=== PATIENT | male | born 1935 | race Caucasian/White ===

== ENCOUNTER 2019-08-22 15:26 | Outpatient (CLI) | payer MEDICARE, SELFPAY ==
--- NOTE | ~2019-08-22 | XR_ITS ---
EXAMINATION: XR chest 2V EXAM DATE: 08/22/2019 16:11 INDICATION: Cough and wheezing. TECHNIQUE: Frontal and lateral projections of the chest obtained and reviewed. Comparison is made to prior examination from 04/09/2018. FINDINGS: The lungs are clear. There are no pleural effusions. The cardiomediastinal silhouette is within normal limits. There is no pneumothorax suspected. The bones and soft tissues are unremarkab le. IMPRESSION: No acute cardiopulmonary findings. Reviewed, dictated and finalized at location B. [facility] C[facility]ER COMPLAINT SERVICE
== END 2019-08-22 15:27 | disposition home or self-care (01) ==
LOC: CHSIMG 15:33
PROVIDERS: PCP Family Medicine; Visit Provider Family Medicine
DX: R05 Cough (principal)
CPT/HCPCS: 71046

== ENCOUNTER 2020-04-01 07:05 | Outpatient (CLI) | payer MEDICARE, SELFPAY ==
[2020-04-01 07:27] LABS: Basophils Absolute Auto 0.03 K/mm3 (0.00-0.10); Basophils Percent Auto 0.5 % (0.0-1.0); Eosinophils Absolute Auto 0.23 K/mm3 (0.02-0.50); Eosinophils Percent Auto 3.8 % (1.0-6.0); Hematocrit 42.8 % (37.0-46.0); Hemoglobin 14.3 g/dL (12.4-15.3); Immature Granulocyte Absolute 0.02 K/mm3 (0.00-0.00); Immature Granulocyte Percent A 0.3 % (0.0-0.0); Lymphocytes Absolute Auto 1.14 K/mm3 (1.10-4.50); Mean Corpuscular HGB Conc 33.4 g/dL (32.0-36.0); Mean Corpuscular Hemoglobin 31.6 pg (27.0-31.0); Mean Corpuscular Volume 94.7 fL (78.0-102.0); Mean Platelet Volume 10.4 fl (8.7-11.0); Monocytes Absolute Auto 0.73 K/mm3 (0.10-0.90); Monocytes Percent Auto 12.2 % (2.0-11.0); Neutrophils Absolute Auto 3.8 K/mm3 (1.7-7.2); Neutrophils Percent Auto 64.2 % (50.0-70.0); Platelet Count Result 220 K/mm3 (150-420); Red Blood Count 4.52 M/mm3 (4.70-6.10); Red Cell Distribution Width 13.6 % (11.6-14.4)
[2020-04-01 09:16] LABS: Alanine Aminotransferase 34 U/L (16-63); Albumin Level 3.8 g/dL (3.4-5.0); Alkaline Phosphatase 52 U/L (46-116); Anion Gap 9 mmol/L (8-16); Aspartate Amino Transferase 27 U/L (15-37); Bilirubin,Total 0.9 mg/dL (0.00-1.00); Blood Urea Nitrogen 25 mg/dL (7-18); Calcium 9.1 mg/dL (8.5-10.1); Carbon Dioxide 26 mmol/L (21-32); Chloride 107 mmol/L (98-108); Cholesterol 142 mg/dL (0-200); Creatine Kinase 59 U/L (39-308); Estimated Glomerular Filt Rate > 60; Glucose 94 mg/dL (70-99); HDL Direct 50 mg/dL (40-60); LDL Cholesterol Calculated 77 mg/dL (<130); Osmolality Calculated 298 mOsm/kg (285-295); Potassium 4.1 mmol/L (3.5-5.1); Prostate Specific Antigen 0.4 ng/mL (< OR = 4.0); Sodium 142 mmol/L (136-145); Total Protein 6.5 g/dL (6.4-8.2); Triglycerides 73 mg/dL (0-150)
== END 2020-04-01 07:06 | disposition home or self-care (01) ==
PROVIDERS: PCP Family Medicine; Visit Provider Hospitalist
DX: E78.2 Mixed hyperlipidemia (principal); I10 Essential (primary) hypertension; N40.0 Benign prostatic hyperplasia without lower urinary tract symptoms; Z12.5 Encounter for screening for malignant neoplasm of prostate
CPT/HCPCS: 36415; 80053; 80061; 82550; 84153; 85025; G0103

== ENCOUNTER 2020-10-12 07:12 | Outpatient (CLI) | payer MEDICARE, SELFPAY ==
[2020-10-12 10:03] LABS: Alanine Aminotransferase 8 U/L (16-63); Albumin Level 3.5 g/dL (3.4-5.0); Alkaline Phosphatase 57 U/L (46-116); Anion Gap 7 mmol/L (8-16); Aspartate Amino Transferase 20 U/L (15-37); Bilirubin,Total 0.4 mg/dL (0.00-1.00); Blood Urea Nitrogen 28 mg/dL (7-18); Calcium 8.8 mg/dL (8.5-10.1); Carbon Dioxide 27 mmol/L (21-32); Chloride 108 mmol/L (98-108); Estimated Glomerular Filt Rate > 60; Glucose 104 mg/dL (70-99); Osmolality Calculated 299 mOsm/kg (285-295); Potassium 4.6 mmol/L (3.5-5.1); Sodium 142 mmol/L (136-145); Thyroid Stimulating Hormone 1.22 uIU/mL (0.36-3.74); Total Protein 6.4 g/dL (6.4-8.2)
== END 2020-10-12 07:13 | disposition home or self-care (01) ==
LOC: CHSLAB 07:13
PROVIDERS: PCP Family Medicine; Visit Provider Family Medicine
DX: E78.2 Mixed hyperlipidemia (principal)
CPT/HCPCS: 36415; 80053; 84443

== ENCOUNTER 2021-04-12 07:03 | Outpatient (CLI) | payer MEDICARE, SELFPAY ==
[2021-04-12 07:17] LABS: Basophils Absolute Auto 0.04 K/mm3 (0.00-0.10); Basophils Percent Auto 0.6 % (0.0-1.0); Eosinophils Absolute Auto 0.17 K/mm3 (0.02-0.50); Eosinophils Percent Auto 2.7 % (1.0-6.0); Hematocrit 44.8 % (37.0-46.0); Hemoglobin 14.7 g/dL (12.4-15.3); Immature Granulocyte Absolute 0.01 K/mm3 (0.00-0.00); Immature Granulocyte Percent A 0.2 % (0.0-0.0); Lymphocytes Percent Auto 20.8 % (18.0-42.0); Mean Corpuscular HGB Conc 32.8 g/dL (32.0-36.0); Mean Corpuscular Hemoglobin 31.3 pg (27.0-31.0); Mean Corpuscular Volume 95.5 fL (78.0-102.0); Mean Platelet Volume 10.4 fl (8.7-11.0); Monocytes Absolute Auto 0.83 K/mm3 (0.10-0.90); Monocytes Percent Auto 13.3 % (2.0-11.0); Neutrophils Absolute Auto 3.9 K/mm3 (1.7-7.2); Neutrophils Percent Auto 62.4 % (50.0-70.0); Platelet Count Result 235 K/mm3 (150-420); Red Blood Count 4.69 M/mm3 (4.70-6.10); Red Cell Distribution Width 13.5 % (11.6-14.4); White Blood Count 6.3 K/mm3 (4.8-10.8)
[2021-04-12 07:40] LABS: MALB Creatinine Ratio 16.5 mg/g (0-30); Microalbumin Urine Random < 13.0 mg/L
[2021-04-12 08:19] LABS: Alanine Aminotransferase 29 U/L (16-63); Albumin Level 3.7 g/dL (3.4-5.0); Alkaline Phosphatase 48 U/L (46-116); Anion Gap 9 mmol/L (8-16); Aspartate Amino Transferase 19 U/L (15-37); Bilirubin,Total 0.6 mg/dL (0.00-1.00); Blood Urea Nitrogen 18 mg/dL (7-18); Carbon Dioxide 28 mmol/L (21-32); Chloride 108 mmol/L (98-108); Cholesterol 143 mg/dL (0-200); Estimated Glomerular Filt Rate > 60; Glucose 108 mg/dL (70-99); HDL Direct 47 mg/dL (40-60); LDL Cholesterol Calculated 83 mg/dL (<130); Osmolality Calculated 302 mOsm/kg (285-295); Potassium 4.2 mmol/L (3.5-5.1); Prostate Specific Antigen 0.4 ng/mL (< OR = 4.0); Sodium 145 mmol/L (136-145); Total Protein 6.5 g/dL (6.4-8.2); Triglycerides 63 mg/dL (0-150)
== END 2021-04-12 07:04 | disposition home or self-care (01) ==
LOC: CHSLAB 07:05
PROVIDERS: PCP Family Medicine; Visit Provider Family Medicine
DX: E78.2 Mixed hyperlipidemia (principal); N40.0 Benign prostatic hyperplasia without lower urinary tract symptoms; I10 Essential (primary) hypertension
CPT/HCPCS: 36415; 80053; 80061; 82043; 84153; 85025

== ENCOUNTER 2021-10-13 07:12 | Outpatient (CLI) | payer MEDICARE, SELFPAY ==
[2021-10-13 08:16] LABS: Alanine Aminotransferase 30 U/L (16-63); Albumin Level 3.9 g/dL (3.4-5.0); Alkaline Phosphatase 49 U/L (46-116); Anion Gap 7 mmol/L (8-16); Aspartate Amino Transferase 27 U/L (15-37); Bilirubin Direct 0.2 mg/dL (0-0.2); Bilirubin,Total 0.7 mg/dL (0.00-1.00); Blood Urea Nitrogen 21 mg/dL (7-18); Calcium 9.2 mg/dL (8.5-10.1); Carbon Dioxide 28 mmol/L (21-32); Chloride 108 mmol/L (98-108); Estimated Glomerular Filt Rate > 60; Glucose 103 mg/dL (70-99); Osmolality Calculated 299 mOsm/kg (285-295); Potassium 4.3 mmol/L (3.5-5.1); Sodium 143 mmol/L (136-145); Total Protein 6.9 g/dL (6.4-8.2)
== END 2021-10-13 07:13 | disposition home or self-care (01) ==
LOC: CHSLAB 07:15
PROVIDERS: PCP Family Medicine; Visit Provider Family Medicine
DX: R73.9 Hyperglycemia, unspecified (principal); E78.2 Mixed hyperlipidemia
CPT/HCPCS: 36415; 80048; 80076

== ENCOUNTER 2022-04-15 07:18 | Outpatient (CLI) | payer MEDICARE, SELFPAY ==
[2022-04-15 08:35] LABS: Alanine Aminotransferase 34 U/L (16-63); Albumin Level 3.7 g/dL (3.4-5.0); Alkaline Phosphatase 40 U/L (46-116); Anion Gap 8 mmol/L (8-16); Aspartate Amino Transferase 26 U/L (15-37); Bilirubin,Total 0.6 mg/dL (0.00-1.00); Blood Urea Nitrogen 19 mg/dL (7-18); Calcium 9.1 mg/dL (8.5-10.1); Carbon Dioxide 27 mmol/L (21-32); Chloride 108 mmol/L (98-108); Cholesterol 127 mg/dL (0-200); Estimated Glomerular Filt Rate > 60; Glucose 106 mg/dL (70-99); HDL Direct 51 mg/dL (40-60); LDL Cholesterol Calculated 66 mg/dL (<130); Osmolality Calculated 298 mOsm/kg (285-295); Potassium 4.2 mmol/L (3.5-5.1); Sodium 143 mmol/L (136-145); Thyroid Stimulating Hormone 1.05 uIU/mL (0.36-3.74); Total Protein 6.6 g/dL (6.4-8.2); Triglycerides 52 mg/dL (0-150)
[2022-04-19 18:37] LABS: Vitamin D 25 Hydroxy 48 ng/mL (30-100)
[2022-04-19 21:56] LABS: Collagen Type I C-Telopeptide 156 pg/mL (***); Osteocalcin 11 ng/mL (9-38)
== END 2022-04-15 07:19 | disposition home or self-care (01) ==
LOC: CHSLAB 07:21
PROVIDERS: PCP Family Medicine
DX: M81.0 Age-related osteoporosis without current pathological fracture (principal); E78.2 Mixed hyperlipidemia
CPT/HCPCS: 36415; 80053; 80061; 82306; 82523; 83937; 84443

== ENCOUNTER 2022-05-25 18:15 | Outpatient (CLI) | payer MEDICARE, SELFPAY ==
[2022-05-25 18:57] LABS: Strep Group A RT-PCR Negative (Negative)
[2022-05-25 19:08] LABS: Influenza A QL RT-PCR Negative (Negative); Influenza B QL RT-PCR Negative (Negative); SARS-CoV-2 RNA PCR Negative (Negative)
== END 2022-05-25 18:16 | disposition home or self-care (01) ==
LOC: CHSLAB 18:19
PROVIDERS: PCP Family Medicine; Visit Provider Family Medicine
DX: J06.9 Acute upper respiratory infection, unspecified (principal); Z20.822 Contact with and (suspected) exposure to COVID-19
CPT/HCPCS: 87636; 87651

== ENCOUNTER 2023-01-31 07:30 | Outpatient (CLI) | payer MEDICARE, SELFPAY ==
[2023-01-31 07:50] LABS: Basophils Absolute Auto 0.02 K/mm3 (0.00-0.10); Basophils Percent Auto 0.3 % (0.0-1.0); Eosinophils Absolute Auto 0.17 K/mm3 (0.02-0.50); Eosinophils Percent Auto 2.8 % (1.0-6.0); Hematocrit 41.6 % (37.0-46.0); Hemoglobin 13.8 g/dL (12.4-15.3); Immature Granulocyte Absolute 0.02 K/mm3 (0.00-0.00); Immature Granulocyte Percent A 0.3 % (0.0-0.0); Lymphocytes Absolute Auto 1.24 K/mm3 (1.10-4.50); Lymphocytes Percent Auto 20.7 % (18.0-42.0); Mean Corpuscular HGB Conc 33.2 g/dL (32.0-36.0); Mean Corpuscular Hemoglobin 31.9 pg (27.0-31.0); Mean Corpuscular Volume 96.1 fL (78.0-102.0); Mean Platelet Volume 10.3 fl (8.7-11.0); Monocytes Absolute Auto 0.76 K/mm3 (0.10-0.90); Monocytes Percent Auto 12.7 % (2.0-11.0); Neutrophils Absolute Auto 3.8 K/mm3 (1.7-7.2); Neutrophils Percent Auto 63.2 % (50.0-70.0); Platelet Count Result 212 K/mm3 (150-420); Red Blood Count 4.33 M/mm3 (4.70-6.10); Red Cell Distribution Width 13.7 % (11.6-14.4)
[2023-01-31 09:07] LABS: Alanine Aminotransferase 31 U/L (16-63); Albumin Level 3.7 g/dL (3.4-5.0); Alkaline Phosphatase 42 U/L (46-116); Anion Gap 7 mmol/L (8-16); Aspartate Amino Transferase 22 U/L (15-37); Bilirubin,Total 0.7 mg/dL (0.00-1.00); Blood Urea Nitrogen 24 mg/dL (7-18); Calcium 9.2 mg/dL (8.5-10.1); Carbon Dioxide 29 mmol/L (21-32); Chloride 109 mmol/L (98-108); Cholesterol 117 mg/dL (0-200); Estimated Glomerular Filt Rate > 60; Glucose 104 mg/dL (70-99); HDL Direct 49 mg/dL (40-60); LDL Cholesterol Calculated 57 mg/dL (<130); Osmolality Calculated 304 mOsm/kg (285-295); Potassium 4.1 mmol/L (3.5-5.1); Sodium 145 mmol/L (136-145); Thyroid Stimulating Hormone 0.99 uIU/mL (0.36-3.74); Total Protein 6.3 g/dL (6.4-8.2); Triglycerides 53 mg/dL (0-150)
== END 2023-01-31 07:31 | disposition home or self-care (01) ==
LOC: CHSLAB 07:32
PROVIDERS: PCP Family Medicine; Visit Provider Family Medicine
DX: I10 Essential (primary) hypertension (principal)
CPT/HCPCS: 36415; 80053; 80061; 84443; 85025

== ENCOUNTER 2023-08-14 08:21 | Outpatient (CLI) | payer MEDICARE, SELFPAY ==
[2023-08-14 08:42] LABS: Basophils Absolute Auto 0.04 K/mm3 (0.00-0.10); Basophils Percent Auto 0.7 % (0.0-1.0); Eosinophils Percent Auto 3.4 % (1.0-6.0); Hematocrit 40.5 % (37.0-46.0); Hemoglobin 13.1 g/dL (12.4-15.3); Immature Granulocyte Absolute 0.03 K/mm3 (0.00-0.00); Immature Granulocyte Percent A 0.5 % (0.0-0.0); Lymphocytes Absolute Auto 1.17 K/mm3 (1.10-4.50); Lymphocytes Percent Auto 19.9 % (18.0-42.0); Mean Corpuscular HGB Conc 32.3 g/dL (32.0-36.0); Mean Corpuscular Hemoglobin 31.2 pg (27.0-31.0); Mean Corpuscular Volume 96.4 fL (78.0-102.0); Mean Platelet Volume 10.1 fl (8.7-11.0); Monocytes Absolute Auto 0.74 K/mm3 (0.10-0.90); Monocytes Percent Auto 12.6 % (2.0-11.0); Neutrophils Absolute Auto 3.7 K/mm3 (1.7-7.2); Neutrophils Percent Auto 62.9 % (50.0-70.0); Platelet Count Result 222 K/mm3 (150-420); Red Cell Distribution Width 13.9 % (11.6-14.4); White Blood Count 5.9 K/mm3 (4.8-10.8)
[2023-08-14 08:50] LABS: Creatinine Urine 104.67 mg/dL (40-278); MALB Creatinine Ratio 12.4 mg/g (0-30); Microalbumin Urine Random < 13.0 mg/L
[2023-08-14 09:07] LABS: Anion Gap 6 mmol/L (8-16); Blood Urea Nitrogen 26 mg/dL (7-18); Calcium 8.6 mg/dL (8.5-10.1); Carbon Dioxide 30 mmol/L (21-32); Chloride 108 mmol/L (98-108); Estimated Glomerular Filt Rate > 60; Glucose 108 mg/dL (70-99); Osmolality Calculated 303 mOsm/kg (285-295); Potassium 4.3 mmol/L (3.5-5.1); Sodium 144 mmol/L (136-145)
== END 2023-08-14 08:22 | disposition home or self-care (01) ==
LOC: CHSLAB 08:23
PROVIDERS: PCP Family Medicine; Visit Provider Family Medicine
DX: I10 Essential (primary) hypertension (principal)
CPT/HCPCS: 36415; 80048; 82043; 85025

== ENCOUNTER 2024-02-09 07:27 | Outpatient (CLI) | payer MEDICARE, SELFPAY ==
[2024-02-09 07:51] LABS: Basophils Absolute Auto 0.03 K/mm3 (0.00-0.10); Basophils Percent Auto 0.4 % (0.0-1.0); Eosinophils Absolute Auto 0.18 K/mm3 (0.02-0.50); Eosinophils Percent Auto 2.6 % (1.0-6.0); Hematocrit 40.5 % (37.0-46.0); Hemoglobin 13.6 g/dL (12.4-15.3); Immature Granulocyte Absolute 0.03 K/mm3 (0.00-0.00); Immature Granulocyte Percent A 0.4 % (0.0-0.0); Lymphocytes Absolute Auto 1.25 K/mm3 (1.10-4.50); Lymphocytes Percent Auto 18.4 % (18.0-42.0); Mean Corpuscular HGB Conc 33.6 g/dL (32-36); Mean Corpuscular Hemoglobin 31.9 pg (27.0-31.0); Mean Corpuscular Volume 95.1 fL (78.0-102.0); Mean Platelet Volume 10.1 fl (8.7-11.0); Monocytes Absolute Auto 0.81 K/mm3 (0.10-0.90); Monocytes Percent Auto 11.9 % (2.0-11.0); Neutrophils Absolute Auto 4.51 K/mm3 (1.70-7.20); Neutrophils Percent Auto 66.3 % (50.0-70.0); Platelet Count Result 234 K/mm3 (150-420); Red Blood Count 4.26 M/mm3 (4.70-6.10); Red Cell Distribution Width 13.8 % (11.6-14.4); White Blood Count 6.8 K/mm3 (4.8-10.8)
[2024-02-09 08:02] LABS: Creatinine Urine 63.62 mg/dL (40-278); MALB Creatinine Ratio 20.4 mg/g (0-30); Microalbumin Urine Random < 13.0 mg/L
[2024-02-09 10:19] LABS: Alanine Aminotransferase 44 U/L (16-63); Albumin Level 3.7 g/dL (3.4-5.0); Alkaline Phosphatase 44 U/L (46-116); Anion Gap 6 mmol/L (4-12); Aspartate Amino Transferase 30 U/L (15-37); Bilirubin,Total 0.4 mg/dL (0.00-1.00); Blood Urea Nitrogen 24 mg/dL (7-18); Calcium 9.1 mg/dL (8.5-10.1); Carbon Dioxide 29 mmol/L (21-32); Chloride 105 mmol/L (98-108); Cholesterol 125 mg/dL (0-200); Estimated Glomerular Filt Rate > 60; Glucose 110 mg/dL (70-99); HDL Direct 47 mg/dL (40-60); LDL Cholesterol Calculated 67 mg/dL (<130); Osmolality Calculated 295 mOsm/kg (285-295); Potassium 4.3 mmol/L (3.5-5.1); Sodium 140 mmol/L (136-145); Total Protein 6.6 g/dL (6.4-8.2); Triglycerides 55 mg/dL (0-150)
== END 2024-02-09 07:28 | disposition home or self-care (01) ==
LOC: CHSLAB 07:30
PROVIDERS: PCP Family Medicine; Visit Provider Family Medicine
DX: I10 Essential (primary) hypertension (principal); E78.2 Mixed hyperlipidemia
CPT/HCPCS: 36415; 80053; 80061; 82043; 84443; 85025

== ENCOUNTER 2024-03-19 07:25 | Outpatient (CLI) | payer MEDICARE, SELFPAY ==
[2024-03-19 08:06] LABS: Anion Gap 7 mmol/L (4-12); Blood Urea Nitrogen 19 mg/dL (7-18); Calcium 8.9 mg/dL (8.5-10.1); Carbon Dioxide 30 mmol/L (21-32); Chloride 107 mmol/L (98-108); Estimated Glomerular Filt Rate > 60; Glucose 108 mg/dL (70-99); Hemoglobin A1C 5.8 % (<5.7); Osmolality Calculated 301 mOsm/kg (285-295); Sodium 144 mmol/L (136-145)
[2024-03-20 16:19] LABS: Vitamin D 25 Hydroxy 47 ng/mL (30-100)
[2024-03-21 21:48] LABS: Osteocalcin 12 ng/mL (9-38)
[2024-03-23 16:53] LABS: Collagen Type I C-Telopeptide 182 pg/mL
== END 2024-03-19 07:26 | disposition home or self-care (01) ==
PROVIDERS: PCP Family Medicine
DX: M81.0 Age-related osteoporosis without current pathological fracture (principal); R73.03 Prediabetes
CPT/HCPCS: 36415; 80048; 82306; 82523; 83036; 83937

== ENCOUNTER 2024-07-30 08:42 | Outpatient (CLI) | payer MEDICARE, SELFPAY ==
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
--- OUTSIDE RECORDS SUMMARY | 2024-07-30 08:59 | XMS_ITS | Encounter Summary ---
Author Organization [facility] Address [address] [place] [address]. [place] [address] [place] [address] Care Team Providers Care Computer Support Analyst Name Role Phone Santos Reynoso MD Unavailable [phone] Jay Watson MD Primary Care Provider [phone] Encounter Details Date Type Department Care Team (Late st Contact Info) Description 10/21/2020 Abstract [facility] [address] Keiko Cassidy MA Social History Tobacco Use Types Packs/Day Years Used Date Smoking Tobacco: Never Smokeless Tobacco: Never Alcohol Use Standard Drinks/Week Comments No 0 (1 standard drink = 0.6 oz pur e alcohol) PHQ-2 Answer Date Recorded PHQ-2 Score - If the patient scores above 3, please move on to questions 3-9 0 03/17/2020 Sex and Gender Information Value Date Recorded Sex Assigned at Not on file Legal Sex Male 11:25 AM CDT Gender Identity Not on file Sexual Orientation Not on file Occupation Industry Job Start Date Job End Date Not on file Not on file Not on file Not on file documented as of this encounter Plan of Treatment Upcoming Encounters Date Type Department Care Team (Late st Contact Info) Description 11/11/2024 11:45 AM CDT [facility] [address] [place] [address] Santos Reynoso MD Three [facility]. [address] [place] [address] documented as of this encounter Procedures Procedure Name Priority Date/Time Associated Diagnosis Comments COMPREHENSIVE METABOLIC PANEL Routine 10/12/2020 THYROID STIM HORMONE TSH Routine 10/12/2020 documented in this encounter Results * THYROID STIM HORMONE, TSH (10/12/2020) TSH 1.22 10/12/2020 [facility] Final Result * COMPREHENSIVE METABOLIC PANEL (10/12/2020) SODIUM S/P/B 142 POTASSIUM S/P/B 4.6 CO2 27 CHLORIDE S/P/B 108 GLUCOSE 104 mg/dL CALCIUM S/P/B 8.8 BUN 28 CREATININE S/P/B 1.07 0.7 - 1.3 EGFR NON-AFR. AMER. >60 <=90 ALKALINE PHOSPHATASE S/P/B 57 ALT 8 AST 20 BILIRUBIN TOTAL S/P/B 0.4 ALBUMIN S/P/B 3.5 3.5 - 5.0 TOTAL PROTEIN S/P/B 6.4 10/12/2020 us Doc [facility] Final Result documented in this encounter Visit Diagnoses Not on filedocumented in this encounter Care Teams Computer Support Analyst Relationship Specialty Start Date End Date Jay Watson MD [facility] [place] [address] PCP - General FAMILY PRACTICE 03/26/16 Santos Reynoso MD Three [facility]. [facility] [address] [place] [address] Roaxnna Personal Banking Representative CARDIOVASCULAR DISEASE 11/25/15 documented as of this encounter
--- OUTSIDE RECORDS SUMMARY | 2024-07-30 09:00 | XMS_ITS | Encounter Summary ---
Author Organization [facility] Address [address] [place] [address]. [place] [address] [place] [address] Care Team Providers Care English As A Second Language Teacher Name Role Phone Santos Reynoso MD Unavailable [phone] Jay Watson MD Primary Care Provider [phone] Tootie Mullen Unavailable [phone] Encounter Details Date Type Department Care Team (Late st Contact Info) Description 04/12/2016 Abstract [facility] AT [address] [address] Keiko Cassidy MA Social History Tobacco Use [...] on file documented as of this encounter Progress Notes * REYNOLD Vasquez - 11/09/2016 1:13 PM CDT PG pt send letter continue current meds documented in this encounter Plan of Treatment Upcoming Encounters Date Type Department Care Team (Late st Contact Info) Description 11/11/2024 11:45 AM CDT Office Visit [facility] [address] [place] [address] [facility] [address] [place] [address] documented as of this encounter Procedures Procedure Name Priority Date/Time Associated Diagnosis Comments CBC (OUTSIDE LAB) Routine 11/08/2016 PROSTATE SPECIFIC ANTIGEN,TOTAL Routine 11/08/2016 BASIC METABOLIC PANEL Routine 11/08/2016 LIPID PANEL Routine 11/04/2016 COMPREHENSIVE METABOLIC PANEL Routine 04/26/2016 LIPID PANEL Routine 04/26/2016 CK (CPK) Routine 04/26/2016 CBC (OUTSIDE LAB) Routine 03/06/2016 BASIC METABOLIC PANEL Routine 03/06/2016 LIPOPROTEIN, LDL CHOL, DIRECT Routine 03/06/2016 documented in this encounter Results * PROSTATE SPECIFIC ANTIGEN,TOTAL (11/08/2016) PSA 0.4 11/08/2016 us [facility] Final Result * CBC (OUTSIDE LAB) (11/08/2016) WBC 5.9 HGB 13.6 HCT 40.7 PLT 218 11/08/2016 us Doc [facility] Abstract LAB-OUTSIDE/ABSTRACTED Final Result * BASIC METABOLIC PANEL (11/08/2016) SODIUM S/P/B 140 POTASSIUM S/P/B 4.3 CO2 25 CHLORIDE S/P/B 107 GLUCOSE 103 mg/dL CALCIUM S/P/B 9.8 BUN 28 CREATININE S/P/B 0.88 0.7 - 1.3 EGFR AFR. AMER. 95 EGFR NON-AFR. AMER. 82 <=90 11/08/2016 us Doc [facility] Final Result * LIPID PANEL (11/04/2016) CHOLESTEROL 192 HDL 50 TRIGLYCERIDES 62 LDL (CALCULATED) 130 11/04/2016 us Doc [facility] Final Result * CK (CPK) (04/26/2016) CPK 59 04/26/2016 us Doc [facility] Final Result * LIPID PANEL (04/26/2016) CHOLESTEROL 192 HDL 50 TRIGLYCERIDES 52 LDL (CALCULATED) 130 04/26/2016 us Doc [facility] Final Result * COMPREHENSIVE METABOLIC PANEL (04/26/2016) SODIUM S/P/B 141 POTASSIUM S/P/B 4.4 CO2 27 CHLORIDE S/P/B 107 GLUCOSE 79 CALCIUM S/P/B 9.7 BUN 21 CREATININE S/P/B 0.88 0.7 - 1.3 EGFR AFR. AMER. 95 EGFR NON-AFR. AMER. 82 ALKALINE PHOSPHATASE S/P/B 46 ALT 17 AST 20 BILIRUBIN TOTAL S/P/B 0.5 ALBUMIN S/P/B 3.9 3.5 - 5.0 TOTAL PROTEIN S/P/B 6.1 04/26/2016 us Doc [facility] Edited Resul t - Final * CBC (OUTSIDE LAB) (03/06/2016) WBC 8.7 HGB 14.5 HCT 43.6 PLT 252 03/06/2016 us Doc [facility] Abstract LAB-OUTSIDE/ABSTRACTED Final Result * LIPOPROTEIN, LDL CHOL, DIRECT (03/06/2016) Pathologist [facility] DIRECT LDL 146 03/06/2016 us Doc [facility]AT[facility] Final Result * BASIC METABOLIC PANEL (03/06/2016) Pathologist [facility] SODIUM S/P/B 143 POTASSIUM S/P/B 3.7 CO2 25 CHLORIDE S/P/B 111 GLUCOSE 122 CALCIUM S/P/B 9.6 BUN 21 CREATININE S/P/B 0.89 EGFR NON-AFR. AMER. >60 03/06/2016 us Doc [facility] Edited Resul t - Final documented in this encounter Visit Diagnoses Not on filedocumented in this encounter Care Teams English As A Second Language Teacher Relationship Specialty Start Date End Date Jay Watson MD [address] [place] [address] PCP - General FAMILY PRACTICE 03/26/16 Tootie Mullen APNP [address] [facility] [address] [place] [address] PCP - Med Group - MSSP Attributed Provider 06/26/15 03/13/19 Santos Reynoso MD Three [facility]. [address] [place] [address] Roxanna Independent Jeweler CARDIOVASCULAR DISEASE 11/25/15 documented as of this encounter
--- OUTSIDE RECORDS SUMMARY | 2024-07-30 09:00 | XMS_ITS | Encounter Summary ---
Author Organization [facility] Address [address] [place] [address]. [place], [place] [address] [place] [address] Care Team Providers Care Gallery Or Museum Guide Name Role Phone Santos Reynoso MD Unavailable [phone] Jay Watson MD Primary Care Provider [phone] Reason for Visit * Reason Onset Date Comments Advise 03/08/2022 Encounter Details Date Type Department Care Team (Late st Contact Info) Description 03/08/2022 Telephone [facility] [address] [place] [address] Jay Watson MD [address] [place] [address] Advise Social History Tobacco Use Types Packs/Day Years Used Date Smoking Tobacco: Never Smokeless Tobacco: Never Alcohol Use Standard Drinks/Week Comments No 0 (1 standard drink = 0.6 oz pur e alcohol) PHQ-2 Answer Date Recorded PHQ-2 Score - If the patient scores above 3, please move on to questions 3-9 0 03/17/2021 Sex and Gender Information Value Date Recorded Sex Assigned at Not on file Legal Sex Male 11:25 AM CDT Gender Identity Not on file Sexual Orientation Not on file Occupation Industry Job Start Date Job End Date Not on file Not on file Not on file Not on file COVID-19 Exposure Response Date Recorded In the last 10 days, have yo u been in contact with someone who was confirmed or suspected to have Coronavirus/COVID-19? No / Unsure 03/04/2022 7:21 AM CDT documented as of this encounter Functional Status * RETIRED Are you deaf or do you have serious difficulty hearing Answer Date of Assessment Author Status No 02/21/2022 8:00 AM CDT Activ e * RETIRED Are you blind or do you have serious difficulty seeing, even when wearing glasses? Answer Date of Assessment Author Status No 02/21/2022 8:00 AM CDT Activ e * Do you have serious difficulty walking or climbing stairs? Answer Date of Assessment Author Status No 02/21/2022 8:00 AM CDT Maria Elena Esqueda RN Active * Do you have difficulty dressing or bathing? Answer Date of Assessment Author Status Yes 02/21/2022 8:00 AM CDT Maria Elena Esqueda RN Active * Because of a physical, mental, or emotional condition, do you have difficulty doing errands alone such as visiting a doctor's office or shopping? Answer Date of Assessment Author Status No 02/21/2022 8:00 AM CDT Maria Elena Esqueda RN Active documented as of this encounter Mental Status * Because of a physical, mental, or emotional condition, do you have serious difficulty concentrating, remembering, or making decisions? Answer Entry Date Author Status No 02/21/2022 8:00 AM CDT Maria Elena Esqueda RN Active documented in this encounter Progress Notes * Echo Boucher MA - 03/08/2022 3:[address] Mcwilliams will be following Home Health care * Jessica Foster - 03/08/2022 8:23 AM CDT [facility] has received the referral on Audie from your office. We will accept and get him onour schedule. Will Dr Zarate be following for his home care or should we defer to the PCP? Thank you Jessica JuneHotel Operations Manager documented in this encounter Plan of Treatment Upcoming Encounters Date Type Department Care Team (Late st Contact Info) Description 11/11/2024 11:45 AM CDT [facility] [address] [place] [address] Santos Reynoso MD [facility]. [address] [place] [address] documented as of this encounter Visit Diagnoses Not on filedocumented in this encounter Additional Health Concerns Assessment Noted Time PHQ-9 Depression Total Score: 0 03/17/20 21 10:02 AM CDT documented as of this encounter Care Teams Gallery Or Museum Guide Relationship Specialty Start Date End Date Jay Watson MD [address] [place] [address] PCP - General FAMILY PRACTICE 03/26/16 Santos Reynoso MD [facility]. [address] [place] [address] Roxanna General Assembler Installer CARDIOVASCULAR DISEASE 11/25/15 documented as of this encounter
--- OUTSIDE RECORDS SUMMARY | 2024-07-30 09:00 | XMS_ITS | Encounter Summary ---
Author Organization [facility] Address [address] [place] [address]. [place] [address] [place] [address] Care Team Providers Care Project Economist Name Role Phone Santos Reynoso MD Unavailable [phone] Jay Watson MD Primary Care Provider [phone] Tootie Mullen Unavailable [phone] Encounter Details Date Type Department Care Team (Late st Contact Info) Description 11/02/2017 Abstract [facility] at [address] [address] Keiko Cassidy MA Social History [...] encounter Progress Notes * REYNOLD Vasquez - 11/02/2017 3:33 PM CDT PG pt send letter continue current meds documented in this encounter Plan of Treatment Upcoming Encounters Date Type Department Care Team (Late st Contact Info) Description 11/11/2024 11:45 AM CDT Office Visit [facility] [address] [place] [phone] Santos Reynoso MD [address] [place] [address] documented as of this encounter Procedures Procedure Name Priority Date/Time Associated Diagnosis Comments CBC (OUTSIDE LAB) Routine 04/01/2020 PROSTATE SPECIFIC ANTIGEN,TOTAL Routine 04/01/2020 COMPREHENSIVE METABOLIC PANEL Routine 04/01/2020 LIPID PANEL Routine 04/01/2020 CK (CPK) Routine 04/01/2020 BASIC METABOLIC PANEL Routine 10/16/2017 LIPID PANEL Routine 10/09/2017 HEPATIC FUNCTION PANEL Routine 10/09/2017 CK (CPK) Routine 10/09/2017 documented in this encounter Results * PROSTATE SPECIFIC ANTIGEN,TOTAL (04/01/2020) PSA 0.4 04/01/2020 [facility] Final Result * LIPID PANEL (04/01/2020) CHOLESTEROL 142 HDL 50 TRIGLYCERIDES 73 LDL (CALCULATED) 77 04/01/2020 [facility] Final Result * CK (CPK) (04/01/2020) CPK 59 39 - 308 04/01/2020 [facility]AT[facility] Final Result * COMPREHENSIVE METABOLIC PANEL (04/01/2020) SODIUM S/P/B 142 POTASSIUM S/P/B 4.1 CO2 26 CHLORIDE S/P/B 107 GLUCOSE 94 mg/dL CALCIUM S/P/B 9.1 BUN 25 CREATININE S/P/B 0.92 0.7 - 1.3 EGFR NON-AFR. AMER. >60 <=90 ALKALINE PHOSPHATASE S/P/B 52 ALT 34 AST 27 BILIRUBIN TOTAL S/P/B 0.9 ALBUMIN S/P/B 3.8 3.5 - 5.0 TOTAL PROTEIN S/P/B 6.5 04/01/2020 [facility]ORAT[facility] Final Result * CBC (OUTSIDE LAB) (04/01/2020) WBC 6.0 HGB 14.3 HCT 42.8 PLT 220 04/01/2020 [facility] Abstract LAB-OUTSIDE/ABSTRACTED Final Result * BASIC METABOLIC PANEL (10/16/2017) SODIUM S/P/B 143 POTASSIUM S/P/B 4.2 CO2 27 CHLORIDE S/P/B 108 GLUCOSE 103 mg/dL CALCIUM S/P/B 9.2 BUN 24 CREATININE S/P/B 0.85 0.7 - 1.3 EGFR AFR. AMER. 95 EGFR NON-AFR. AMER. 82 <=90 10/16/2017 [facility]AT[facility] Final Result * HEPATIC FUNCTION PANEL (10/09/2017) ALBUMIN S/P/B 3.8 3.5 - 5.0 ALKALINE PHOSPHATASE S/P/B 48 ALT 35 AST 26 BILIRUBIN TOTAL S/P/B 0.41 TOTAL PROTEIN S/P/B 6.5 10/09/2017 [facility] LAB[facility]AT[facility] Final Result * LIPID PANEL (10/09/2017) CHOLESTEROL 142 HDL 51 TRIGLYCERIDES 48 LDL (CALCULATED) 81 10/09/2017 [facility] LAB[facility]AT[facility] Edited Resul t - Final * CK (CPK) (10/09/2017) CPK 61 10/09/2017 [facility] Final Result documented in this encounter Visit Diagnoses Not on filedocumented in this encounter Care Teams Project Economist Relationship Specialty Start Date End Date Jay Watson MD [address] [place] [address] PCP - General FAMILY PRACTICE 03/26/16 Tootie Mullen APNP [address] [phone] PCP - Med Group - MSSP Attributed Provider 06/26/15 03/13/19 Santos Reynoso MD [facility] [address] [place] [address] Anderson Marketing Trainee CARDIOVASCULAR DISEASE 11/25/15 documented as of this encounter
--- OUTSIDE RECORDS SUMMARY | 2024-07-30 09:00 | XMS_ITS | Clinical Summary ---
Author Organization [facility] Address [address] [place] [address]. [place] [address] [place] [address] Care Team Providers Care Pulmonary Specialist Name Role Phone Santos Reynoso MD Unavailable [phone] Jay Watson MD Primary Care Provider [phone] Allergies Active Allergy Reactions Criticality Noted Date Comments Sulfa Antibiotics Rash Low 04/05/2016 Medications Multiple Vitamins-Mineral s (MULTIVITAMIN ADULT) Tab Take 1 tablet by mouth daily. 6 Active CALCIUM OR Take 500 mg by mouth daily. Active acetaminophen 500 MG tablet Take 1 tablet (500 mg total) by mouth 2 (two) times a day. Active alendronate 70 MG tablet Take 1 tablet (70 mg total) by mouth once a week. Sundays 2 Active fish oil (OMEGA-3 FATTY ACID) 1000 MG Cap capsule Take 1 capsule (1,000 mg total) by mouth daily. Active losartan (COZAAR) 50 MG tablet Take 1 tablet (50 mg total) by mouth daily. 2 Active Blood Pressure Monitor KitIndications:H ypertension Take blood pressure daily and report findings to office nurse. DX: HTN 1 kit 2 Active clopidogrel (PLAVIX) 75 MG tabletIndication s:Cerebrovascula r accident (CVA) due to embolism of carotid artery, unspecified blood vessel laterality (CMS/HCC HHS/HCC) TAKE 1 TABLET BY MOUTH EVERY DAY 90 tablet 3 3 Active atorvastatin (LIPITOR) 40 MG tablet Take 1 tablet (40 mg total) by mouth nightly at bedtime. 4 Active Active Problems Problem Noted Date Diagnosed Date Acute CVA (cerebrovascular accident) ([facility]) 02/21/2022 Gastroesophageal reflux disease without esophagi tis 06/26/2019 Hyperlipidemia 06/26/2019 Prsnl hx of TIA (TIA), and cereb infrc w/o resid deficits 06/26/2019 Unspecified right bundle-branch block 06/26/2019 Essential hypertension 04/30/2018 Renal failure 05/24/2017 Ureteral stone with hydronephrosis 05/23/2017 Obstructed, uropathy 05/22/2017 Nephrolithiasis 05/22/2017 Primary osteoarthritis of both knees 03/30/2017 Cerebrovascular accident (CV A) due to occlusion of cerebral artery ([facility]) 04/11/2016 Nonrheumatic aortic valve insufficiency 04/11/20 16 NSVT (nonsustained ventricul ar tachycardia) ([facility]) 04/11/2016 Resolved Problems Problem Noted Date Diagnosed Date Resolved Date Preoperative clearance 04/30/201803/06 Encounters Date Type Department Care Team Description 05/06/2024 11:00 AM QUANTITATIVE RESEARCH ANALYST Office Visit [facility] [address] Cindy Fontaine FNP Neurologic Problem; Bradycardia; Hypertension; Lipids 05/06/2024 Travel from Last 3 Months Immunizations Name Administration Dates Next Due Influenza (Generic) 05/06/2020 Influenza Adult (Generic) 04/02/2018 MODERNA COVID-19 (12+) MRNA, LNP-S, PF, 100 MCG/ 0.5 ML DOSE 08/28/2020,07/31/2020 Pneumococcal (Prevnar 13) 01/04/2016 Tdap (Generic) 05/20/2020 Family History Medical History Relation Comments Emphysema Father cva Sister Relation Status Comments Father (Age 88) Mother (Age 25) liver Sister Alive Son 1 Alive Son 2 Alive Son 3 (Age 41) cancer Social History Tobacco Use Types Packs/Day Years Used Date Smoking Tobacco: Never Passive Smoke Exposure: Never Smokeless Tobacco: Never Tobacco Cessation:Counseling Given: Not Answered Alcohol Use Standard Drinks/Week Comments No 0 (1 standard drink = 0.6 oz pur e alcohol) PHQ-2 Answer Date Recorded PHQ-2 Score - If the patient scores above 3, please move on to questions 3-9 0 03/22/2022 Sex and Gender Information Value Date Recorded Sex Assigned at Not on file Legal Sex Male 11:25 AM CDT Gender Identity Not on file Sexual Orientation Not on file Occupation Industry Job Start Date Job End Date Not on file Not on file Not on file Not on file Last Filed Vital Signs Vital Sign Reading Time Taken Comments Blood Pressure 120/60 05/06/2024 10:45 AM QUANTITATIVE RESEARCH ANALYST Pulse 54 05/06/2024 10:45 AM QUANTITATIVE RESEARCH ANALYST Temperature 35.9 ??C (96.6 ??F) 03/22/2022 7:42 AM CD T Respiratory Rate 18 02/22/2022 1:00 PM CDT Oxygen Saturation 95% 05/06/2024 10:45 AM QUANTITATIVE RESEARCH ANALYST Inhaled Oxygen Concentration - - Weight 73.5 kg (162 lb) 05/06/2024 10:45 AM QUANTITATIVE RESEARCH ANALYST Height 172.7 cm (5' 8 ) 05/06/2024 10:45 AM QUANTITATIVE RESEARCH ANALYST Body Mass Index 24.63 05/06/2024 10:45 AM QUANTITATIVE RESEARCH ANALYST Plan of Treatment Upcoming Encounters Date Type Department Care Team (Late st Contact Info) Description 11/11/2024 11:45 AM CDT [facility] [address] [place] [phone] Santos Reynoso MD [facility] [address] [address] Health Maintenance Due Date Last Done Comments PHQ-2 ([facility] [place]) 1947 Zoster Vaccines (1 of 2) 1987 Annual Medicare Wellness Visit 2002 RSV Immunization or 60+ Years (1 - 1-dose 75+ series) 01/23/2012 Pneumococcal Vaccine: 65+ Years (2 of 2 - PPSV23 or PCV20) 02/29/2016 01/04/2016 COVID-19 Vaccine ( - 2023-2 5 season) 2024 08/28/2020, 07/31/2020 Influenza Adult (#1) 2024 05/06/2020, 04/02/2018 PHQ-2 ([facility] [place]) 06/26/2024 DTaP, Tdap and Td Vaccines ( 2 - Td or Tdap) 05/20/2030 05/20/2020 Meningococcal B Vaccine Aged Out No l onger eligible based on patient's age to complete this topic Meningococcal Vaccine Aged Out No fiorella miguel eligible based on patient's age to complete this topic RSV Immunizations Under 20 Months Aged Out No longer eligible b ased on patient's age to complete this topic Medical Devices Implanted Type Area Hide Dyer Device Identifier Shelf Expiration Date Model / Serial / Lot Knee Components Knee Components Iol Ezekiel [id number] - [id number] Implanted:Qty: 1 on 01/11/2021 by Macro Rizvi MD at [facility] Lens Right: Eye [employer]ZEKIEL - [employer]GICAL DIV 04/20/2023 [id number] / [id number] / Stent Uret 6fr 26cm Pigtl Crv Taper Tip Bldr Mrk - [id number] Implanted:Qty: 1 on 05/23/2017 by Johanne Johansen MD at [facility] Barak ITC DEBBIE 02/09/2019 [id number] Insurance MEDICARE [facility] MEDICARE [facility] Advance Directives Documents on File Type Date Recorded 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 Advance Directives and Living Will 04/20/2018 12:00 AM POWER OF GLASS CLEANER FO R HEALTH CARE Advance Directives and Living Will 04/20/2018 12:00 AM 10/13/2011 Advance Directives and Living Will 05/30/2017 12:00 AM POWER OF [employer] R HE[employer] CARE Advance Directives and Living Will 05/30/2017 12:00 AM POWER OF GLASS CLE[employer]ER [employer] R HE[employer] CARE Advance Directives and Living Will 05/22/2017 12:00 AM POWER OF GLASS CLE[employer]ER [employer] R HE[facility] CARE Advance Directives and Living Will 05/22/2017 12:00 AM POWER OF GLASS CLEANER [employer] R HE[employer] CARE Advance Directives and Living Will 04/18/2017 12:00 AM POWER OF GLASS CLEANER [employer] R HEALTH CARE Advance Directives and Living Will 04/18/2017 12:00 AM POWER OF GLASS CLEANER [employer] R HE[employer] CARE Advance Directives and Living Will 04/21/2016 12:00 AM POWER OF GLASS CLEANER [employer] R HEALTH CARE Advance Directives and Living Will 04/21/2016 12:00 AM POWER OF GLASS CLE[employer]ER [employer] R HE[facility] CARE Advance Directives and Living Will 03/14/2016 12:00 AM POWER OF GLASS CLE[employer]ER [employer] R HE[employer] CARE Advance Directives and Living Will 03/14/2016 12:00 AM POWER OF GLASS CLE[employer]ER [employer] HE[facility] CARE Advance Directives and Living Will 03/06/2016 12:00 AM POWER OF GLASS CLEANER [employer] R HEALTH CARE Advance Directives and Living Will 03/06/2016 12:00 AM POWER OF GLASS CLEANER [employer] R HEALTH CARE * Full Code (Latest Code Status on File) Date Activated Date Inactivated Comments 02/21/2022 1:20 PM 02/22/2022 4:59 PM * Full Code Date Activated Date Inactivated Comments 06/16/2017 10:52 AM 06/16/2017 1:28 PM * Full Code Date Activated Date Inactivated Comments 05/22/2017 11:04 AM 05/24/2017 3:15 PM Care Teams Pulmonary Specialist Relationship Specialty Start Date End Date Jay Watson MD [address] [place] [address] PCP - General FAMILY PRACTICE 03/26/16 Santos Reynoso MD Three [facility] [address] [place] [address] [employer] Methodology Consultant CARDIOVASCULAR DISEASE 11/25/15
[2024-07-30 09:02] LABS: Add Urine Microscopic? NO; Appearance Urine Clear (Clear); Bilirubin Urine Negative (Negative); Blood Urine Negative (Negative); Color Urine Yellow (Yellow); Glucose Urine UA Negative (Negative); Ketones Urine Negative (Negative); Leukocyte Esterase Ur Negative (Negative); Nitrate Urine Negative (Negative); Protein Urine Negative (Negative); Specific Grav Ur 1.025 (1.010-1.020); Urobilinogen Urine 0.2 mg/dL (0.2-1.0)
[2024-07-30 09:03] LABS: Basophils Absolute Auto 0.02 K/mm3 (0.00-0.10); Basophils Percent Auto 0.3 % (0.0-1.0); Eosinophils Absolute Auto 0.21 K/mm3 (0.02-0.50); Eosinophils Percent Auto 3.4 % (1.0-6.0); Hematocrit 41.1 % (37.0-46.0); Immature Granulocyte Absolute 0.02 K/mm3 (0.00-0.00); Immature Granulocyte Percent A 0.3 % (0.0-0.0); Lymphocytes Absolute Auto 1.06 K/mm3 (1.10-4.50); Mean Corpuscular HGB Conc 31.6 g/dL (32-36); Mean Corpuscular Hemoglobin 30.9 pg (27.0-31.0); Mean Corpuscular Volume 97.6 fL (78.0-102.0); Mean Platelet Volume 10.1 fl (8.7-11.0); Monocytes Absolute Auto 0.62 K/mm3 (0.10-0.90); Monocytes Percent Auto 9.9 % (2.0-11.0); Neutrophils Absolute Auto 4.32 K/mm3 (1.70-7.20); Neutrophils Percent Auto 69.1 % (50.0-70.0); Platelet Count Result 238 K/mm3 (150-420); Red Blood Count 4.21 M/mm3 (4.70-6.10); Red Cell Distribution Width 13.6 % (11.6-14.4); White Blood Count 6.3 K/mm3 (4.8-10.8)
[2024-07-30 10:10] LABS: Alanine Aminotransferase 35 U/L (16-63); Albumin Level 3.6 g/dL (3.4-5.0); Alkaline Phosphatase 49 U/L (46-116); Anion Gap 10 mmol/L (4-12); Aspartate Amino Transferase 23 U/L (15-37); Bilirubin,Total 0.7 mg/dL (0.00-1.00); Blood Urea Nitrogen 22 mg/dL (7-18); Calcium 9.2 mg/dL (8.5-10.1); Carbon Dioxide 25 mmol/L (21-32); Chloride 108 mmol/L (98-108); Estimated Glomerular Filt Rate > 60; Glucose 127 mg/dL (70-99); Osmolality Calculated 301 mOsm/kg (285-295); Potassium 4.2 mmol/L (3.5-5.1); Sodium 143 mmol/L (136-145); Thyroid Stimulating Hormone 1.02 uIU/mL (0.36-3.74); Total Protein 6.2 g/dL (6.4-8.2)
[2024-07-31 11:12] LABS: Hemoglobin A1C 5.8 % (<5.7)
== END 2024-07-30 08:43 | disposition home or self-care (01) ==
LOC: CHSLAB 08:44
PROVIDERS: PCP Family Medicine; Visit Provider Family Medicine
DX: I10 Essential (primary) hypertension (principal); R73.01 Impaired fasting glucose
CPT/HCPCS: 36415; 80053; 81003; 83036; 84443; 85025

== ENCOUNTER 2025-01-29 07:02 | Outpatient (CLI) | payer MEDICARE, SELFPAY ==
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
[2025-01-29 07:23] LABS: Hematocrit 43.3 % (37.0-46.0); Hemoglobin 14.2 g/dL (12.4-15.3); Immature Granulocyte Percent A 0.3 % (0.0-0.0); Lymphocytes Absolute Auto 1.64 K/mm3 (1.10-4.50); Mean Corpuscular HGB Conc 32.8 g/dL (32-36); Mean Corpuscular Hemoglobin 31.6 pg (27.0-31.0); Mean Corpuscular Volume 96.2 fL (78.0-102.0); Nucleated Red Blood Cells Absolute Auto 0.00 K/mm3 (0.00-0.00); Nucleated Red Blood Cells Perc 0.0 % (0-0.0); Platelet Count Result 259 K/mm3 (150-420); Red Blood Count 4.50 M/mm3 (4.70-6.10); White Blood Count 7.6 K/mm3 (4.8-10.8)
[2025-01-29 07:54] LABS: Anion Gap 7 mmol/L (4-12); Blood Urea Nitrogen 20 mg/dL (9-20); Calcium 10.1 mg/dL (8.4-10.2); Carbon Dioxide 26 mmol/L (22-30); Chloride 109 mmol/L (98-107); Cholesterol 118 mg/dL (0-200); Estimated Glomerular Filt Rate > 60; Glucose 132 mg/dL (65-110); HDL Direct 56 mg/dL; Osmolality Calculated 298 mOsm/kg (285-295); Potassium 4.3 mmol/L (3.4-5.0); Sodium 142 mmol/L (137-145); Triglycerides 90 mg/dL (<150)
[2025-01-29 13:47] LABS: Hemoglobin A1C 6.2 % (<5.7)
== END 2025-01-29 07:03 | disposition home or self-care (01) ==
LOC: CHSLAB 07:03
PROVIDERS: PCP Family Medicine; Visit Provider Family Medicine
DX: I10 Essential (primary) hypertension (principal); R73.9 Hyperglycemia, unspecified
CPT/HCPCS: 36415; 80048; 80061; 83036; 85025